=== PATIENT | female | born 1935 | race Caucasian/White ===

== ENCOUNTER 2016-09-15 12:43 | Inpatient (IN) | payer MEDICARE, MEDICAID ==
[~2016-09-15] VITALS: Ht 152.4 cm; Wt 77.4 kg
[2016-09-15] MEDS ORDERED: HYDR-3307 PO (13:42)
[2016-09-15] MEDS ORDERED: POLY17PO5 PO (13:42)
[2016-09-15] MEDS ORDERED: FURO-93 PO (13:42)
[2016-09-15] MEDS ORDERED: EXEM25TA PO (13:42)
[2016-09-15] MEDS ORDERED: FERR325T20 PO (13:42)
[2016-09-15] MEDS ORDERED: AMLO5TAB2 PO (13:42)
[2016-09-15] MEDS ORDERED: GABA100C8 PO (13:42)
[2016-09-15] MEDS ORDERED: INSU100C5 SQ-INSULIN (13:42)
[2016-09-15] MEDS ORDERED: OXYB5TAB PO (13:42)
[2016-09-15] MEDS ORDERED: DICL100G8 TD (13:42)
[2016-09-15] MEDS ORDERED: LISI40TA PO (13:42)
[2016-09-15] MEDS ORDERED: BUDE10.22 INH (13:42)
[2016-09-15] MEDS ORDERED: MULT-208 PO (13:42)
[2016-09-15] MEDS ORDERED: LATA2.5D3 EACHEYE (13:42)
[2016-09-15] MEDS ORDERED: ZOLP10TA PO (13:42)
[2016-09-15] MEDS ORDERED: POTA20PA8 PO (13:42)
[2016-09-15] MEDS ORDERED: METO25TA91 PO (13:42)
[2016-09-15] MEDS ORDERED: INSU100V8 SQ (13:42)
[2016-09-15] MEDS ORDERED: BRIM5DRO2 OP (13:42)
[2016-09-15] MEDS ORDERED: BRIN10DR OP (13:42)
[2016-09-15] MEDS ORDERED: SIMV20TA3 PO (13:42)
[2016-09-15] MEDS ORDERED: methylPREDNISolone SOD SUCC 125 MG/2 ML ONE (13:43)
[2016-09-15] MEDS ORDERED: ALBUTEROL SULFATE 2.5 MG/3 ML ONE (13:48)
[2016-09-15] MEDS ORDERED: SODIUM CHLORIDE FLUSH 10ML SYR IVF ONE (14:00)
[2016-09-15] MEDS ORDERED: methylPREDNISolone SOD SUCC 125 MG/2 ML IVP ONE (14:00)
[2016-09-15] MEDS ORDERED: ALBUTEROL SULFATE 2.5 MG/3 ML NPPB ONE (14:00)
[2016-09-15 14:18] LABS: BLOOD UREA NITROGEN 24 mg/dL (7-18)
[2016-09-15 14:25] LABS: IS PT STATUS REG ER OR PRE ER? YES
[2016-09-15] MEDS ORDERED: CEFTRIAXONE PMX 1GM/50ML 50 ML IV ONE (14:30)
[2016-09-15] MEDS ORDERED: AZITHROMYCIN 500 MG in SODIUM CHLORIDE 0.9% 250 ML IV ONE (14:30)
[2016-09-15 16:22] VITALS: BP 160/61
[2016-09-15] MEDS ORDERED: GUAIFENESIN/DM 200-20MG, 10ML UDC PO PRN (17:00)
[2016-09-15] MEDS ORDERED: ONDANSETRON 2MG/ML, 2ML IVPush PRN (17:00)
[2016-09-15] MEDS ORDERED: DEXTROSE 4 GM TAB.CHEW PO PRN (17:00)
[2016-09-15] MEDS ORDERED: SENNA/DOCUSATE TABLET PO PRN (17:00)
[2016-09-15] MEDS ORDERED: LABETALOL 5MG/ML 40ML VIAL IVPush PRN (17:00)
[2016-09-15] MEDS ORDERED: DEXTROSE 50%, 50ML SYRINGE IVPush PRN (17:00)
[2016-09-15] MEDS ORDERED: ACETAMINOPHEN 325 MG TABLET PO PRN (17:00)
[2016-09-15] MEDS ORDERED: GLUCAGON 1 MG IM PRN (17:00)
[2016-09-15] MEDS ORDERED: BISACODYL 10 MG SUPP PR PRN (17:00)
[2016-09-15] MEDS ORDERED: PHARMACY MAY ADJ FOR RENAL FX MC PRN (17:00)
[2016-09-15] MEDS ORDERED: ONDANSETRON ODT 4 MG PO PRN (17:00)
[2016-09-15] MEDS: ALBUTEROL SULFATE 2.5 MG/3 ML NPPB SCH ×2 (18:00→22:00)
[2016-09-15] MEDS: SODIUM CHLORIDE 0.9% 1,000 ML IV SCH (18:17)
[2016-09-15] MEDS: CEFTRIAXONE PMX 1GM/50ML 50 ML IV SCH (18:18)
[2016-09-15] MEDS: INSULIN REGULAR 100 UNITS/ML, 3ML VIAL SQ-INSULIN SCH ×2 (18:18→22:26)
[2016-09-15] MEDS: HEPARIN 5,000 UNITS/ML, 1ML INJ SCH (18:19)
[2016-09-15 20:55] VITALS: BP 161/67
[2016-09-15] MEDS: LATANOPROST OPHTH 0.005%, 2.5ML EACHEYE SCH (21:00)
[2016-09-15] MEDS: SYMBICORT INH SCH (22:00)
[2016-09-15] MEDS: BRIMONIDINE TARTRATE OPHTH 0.15%, 5ML EACHEYE SCH (22:00)
[2016-09-15] MEDS: SODIUM CHLORIDE FLUSH 10ML SYR IVF SCH (22:23)
[2016-09-15] MEDS: GABAPENTIN 100 MG CAPSULE PO SCH (22:26)
[2016-09-15] MEDS: SIMVASTATIN 20 MG TABLET PO SCH (22:26)
[2016-09-15] MEDS: methylPREDNISolone SOD SUCC 125 MG/2 ML IVPush SCH (22:26)
[2016-09-15] MEDS: INSULIN DETEMIR 100 UNITS/ML, PEN SQ-INSULIN SCH (22:31)
[2016-09-16 01:12] VITALS: BP 144/77
[2016-09-16] MEDS: HEPARIN 5,000 UNITS/ML, 1ML INJ SCH ×3 (02:56→16:03)
[2016-09-16] MEDS: HYDROcodone/APAP 5/325 TABLET PO PRN ×2 (04:55→22:14)
[2016-09-16] MEDS: methylPREDNISolone SOD SUCC 125 MG/2 ML IVPush SCH ×2 (04:55→10:12)
[2016-09-16 06:21] LABS: BLOOD UREA NITROGEN 23 mg/dL (7-18)
[2016-09-16] MEDS: SODIUM CHLORIDE 0.9% 1,000 ML IV SCH ×2 (06:41→21:49)
[2016-09-16 07:16] VITALS: BP 129/72
[2016-09-16] MEDS: ALBUTEROL SULFATE 2.5 MG/3 ML NPPB SCH ×5 (07:30→23:00)
[2016-09-16] MEDS: INSULIN REGULAR 100 UNITS/ML, 3ML VIAL SQ-INSULIN SCH ×4 (07:31→21:56)
[2016-09-16] MEDS: BRIMONIDINE TARTRATE OPHTH 0.15%, 5ML EACHEYE SCH ×2 (09:00→21:57)
[2016-09-16] MEDS: SYMBICORT INH SCH ×2 (09:00→22:02)
[2016-09-16] MEDS: BRINZOLAMIDE OP SCH ×2 (09:00→21:00)
[2016-09-16] MEDS: TEMPLATE NON-FORMULARY MED. (Brimonidine Tartrate/Timolol (Combigan Eye Drops) 1 DROP) OP SCH (09:00)
[2016-09-16] MEDS: SODIUM CHLORIDE FLUSH 10ML SYR IVF SCH ×2 (10:09→21:49)
[2016-09-16] MEDS: FERROUS SULFATE 325 MG TABLET PO SCH (10:10)
[2016-09-16] MEDS: GABAPENTIN 100 MG CAPSULE PO SCH ×3 (10:10→21:49)
[2016-09-16] MEDS: MULTIVITAMIN 1 TABLET PO SCH (10:11)
[2016-09-16] MEDS: AMLODIPINE 5 MG TABLET PO SCH (10:11)
[2016-09-16] MEDS: METOPROLOL SUCCINATE 25 MG TAB.ER.24H PO SCH (10:11)
[2016-09-16 12:32] VITALS: BP 145/76
[2016-09-16] MEDS ORDERED: AZITHROMYCIN 500 MG in SODIUM CHLORIDE 0.9% 250 ML IV SCH (14:30)
[2016-09-16] MEDS: CEFTRIAXONE PMX 1GM/50ML 50 ML IV SCH (18:11)
[2016-09-16 19:50] VITALS: BP 183/78
[2016-09-16] MEDS: SIMVASTATIN 20 MG TABLET PO SCH (21:49)
[2016-09-16] MEDS: INSULIN DETEMIR 100 UNITS/ML, PEN SQ-INSULIN SCH (21:56)
[2016-09-16] MEDS: LATANOPROST OPHTH 0.005%, 2.5ML EACHEYE SCH (22:02)
[2016-09-17] MEDS: HEPARIN 5,000 UNITS/ML, 1ML INJ SCH ×2 (01:00→07:39)
[2016-09-17 03:26] VITALS: BP 121/68
[2016-09-17] MEDS: ALBUTEROL SULFATE 2.5 MG/3 ML NPPB SCH ×2 (07:10→10:35)
[2016-09-17 07:13] VITALS: BP 132/70
[2016-09-17] MEDS: BRIMONIDINE TARTRATE OPHTH 0.15%, 5ML EACHEYE SCH (07:33)
[2016-09-17] MEDS: SYMBICORT INH SCH (07:36)
[2016-09-17] MEDS: INSULIN REGULAR 100 UNITS/ML, 3ML VIAL SQ-INSULIN SCH (07:37)
[2016-09-17] MEDS: TEMPLATE NON-FORMULARY MED. (Brimonidine Tartrate/Timolol (Combigan Eye Drops) 1 DROP) OP SCH (07:37)
[2016-09-17] MEDS: MULTIVITAMIN 1 TABLET PO SCH (07:38)
[2016-09-17] MEDS: METOPROLOL SUCCINATE 25 MG TAB.ER.24H PO SCH (07:38)
[2016-09-17] MEDS: BRINZOLAMIDE OP SCH (07:38)
[2016-09-17] MEDS: SODIUM CHLORIDE FLUSH 10ML SYR IVF SCH (07:38)
[2016-09-17] MEDS: AMLODIPINE 5 MG TABLET PO SCH (07:38)
[2016-09-17] MEDS: FERROUS SULFATE 325 MG TABLET PO SCH (07:39)
[2016-09-17] MEDS: GABAPENTIN 100 MG CAPSULE PO SCH (07:39)
[2016-09-17] MEDS ORDERED: AZIT500T77 PO (10:26)
[2016-09-17] MEDS ORDERED: PRED10TA PO (10:26)
[2016-09-17] MEDS ORDERED: CEFD300C37 PO (10:26)
== END 2016-09-17 14:32 | disposition home or self-care (01) | DRG 682 ==
LOC: ED 15:30 → EDIP 15:40 → 3NE 17:16 → DCLOUNGE 09-17 13:10
PROVIDERS: ADMIT Internal Medicine; ATTEND Internal Medicine
DX: N17.0 Acute kidney failure with tubular necrosis (principal); J15.9 Unspecified bacterial pneumonia; J96.21 Acute and chronic respiratory failure with hypoxia; J44.1 Chronic obstructive pulmonary disease with (acute) exacerbation; J44.0 Chronic obstructive pulmonary disease with (acute) lower respiratory infection; I13.0 Hypertensive heart and chronic kidney disease with heart failure and stage 1 through stage 4 chronic kidney disease, or unspecified chronic kidney disease; E11.42 Type 2 diabetes mellitus with diabetic polyneuropathy; E11.65 Type 2 diabetes mellitus with hyperglycemia; E66.9 Obesity, unspecified; E78.5 Hyperlipidemia, unspecified; G47.33 Obstructive sleep apnea (adult) (pediatric); H40.9 Unspecified glaucoma; I50.9 Heart failure, unspecified; I87.8 Other specified disorders of veins; K59.09 Other constipation; L30.9 Dermatitis, unspecified; M19.90 Unspecified osteoarthritis, unspecified site; R32 Unspecified urinary incontinence; T38.0X5A Adverse effect of glucocorticoids and synthetic analogues, initial encounter; Z66 Do not resuscitate; Z79.4 Long term (current) use of insulin; Z80.0 Family history of malignant neoplasm of digestive organs; Z80.3 Family history of malignant neoplasm of breast; Z85.3 Personal history of malignant neoplasm of breast; Z86.74 Personal history of sudden cardiac arrest; Z90.12 Acquired absence of left breast and nipple; Z91.81 History of falling; Z95.0 Presence of cardiac pacemaker; Z96.652 Presence of left artificial knee joint; Z99.81 Dependence on supplemental oxygen; Z68.33 Body mass index [BMI] 33.0-33.9, adult; Z88.0 Allergy status to penicillin; Z88.8 Allergy status to other drugs, medicaments and biological substances; N18.9 Chronic kidney disease, unspecified; E11.21 Type 2 diabetes mellitus with diabetic nephropathy
CPT/HCPCS: 36415; 71010; 80048; 82040; 82962; 83605; 83880; 84145; 84484; 85025; 87040; 93005; 93306; 94640; 96365; 96375; J0456; J0696; J1644; J1815; J7613; J2930; J7030; J7050; J7512